=== PATIENT | female | born 1975 | race Caucasian/White ===

== ENCOUNTER 2021-10-04 17:12 | Emergency (ER) | payer OTHER ==
[~2021-10-04] VITALS: Ht 160 cm; Wt 52.2 kg
[2021-10-04] MEDS ORDERED: HYDROCODONE/APAP 5MG-325MG TAB PO ONE (18:00)
[2021-10-04] MEDS ORDERED: IBUPROFEN600 MG PO (19:20)
== END 2021-10-04 19:20 | disposition home or self-care (01) ==
LOC: ER 17:33
DX: M25.572 Pain in left ankle and joints of left foot (principal); W17.89XD Other fall from one level to another, subsequent encounter; Y92.89 Other specified places as the place of occurrence of the external cause
CPT/HCPCS: 93971; 99283